=== PATIENT | female | born 1985 | race Caucasian/White ===

== ENCOUNTER 2019-04-29 11:30 | Emergency (ER) | payer OTHER, SELFPAY ==
--- NOTE | ~2019-04-29 | XR_ITS ---
EXAMINATION: XR hand RT min 3V DATE: 04/29/2019 11:58 INDICATION: Right hand injury. TECHNIQUE: 3 views of right hand were obtained. COMPARISON: None. FINDINGS: Bone alignment is normal. No fracture. Joint spaces are well maintained. IMPRESSION: 1. Normal right hand. Reviewed, dictated and finalized at location A. AULIC AND PLUMBING INSTALLER IMPRESSION: 1. Normal right hand.
--- NOTE | ~2019-04-29 | XR_ITS ---
EXAMINATION: XR hand LT min 3V DATE: 04/29/2019 11:58 INDICATION: Left hand injury. TECHNIQUE: 3 views of left hand were obtained. COMPARISON: Left hand radiographs 07/29/2018 FINDINGS: There is a transverse fracture of proximal metaphysis of fifth proximal phalanx. The distal fracture fragment demonstrates impaction, 1 mm palmar displacement, 17 degrees dorsal angulation, 1 mm medial displacement, and 42 degrees radial angulation. Joint spaces are normal. IMPRESSION: 1. Transverse fracture of metaphysis of fifth proximal phalanx. Reviewed, dictated and finalized at location A. ER DEPARTMENT MANAGER
[2019-04-29 11:37] VITALS: BP 118/60; PULSE 81; RESP 20; TEMP 36.3; O2SAT 100
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
[2019-04-29 13:02] VITALS: BP 122/78; PULSE 80; RESP 20; TEMP 36.7; O2SAT 99
== END 2019-04-29 13:03 | disposition home or self-care (01) ==
PROVIDERS: Emergency Provider Emergency Medicine; PCP Family Medicine
DX: S62.617A Displaced fracture of proximal phalanx of left little finger, initial encounter for closed fracture (principal); F17.200 Nicotine dependence, unspecified, uncomplicated; V18.4XXA Pedal cycle driver injured in noncollision transport accident in traffic accident, initial encounter; Y93.55 Activity, bike riding
CPT/HCPCS: 26725; 73130; 99285; A9270

== ENCOUNTER → 2020-05-23 11:49 | Outpatient (CLI) | payer OTHER, SELFPAY ==
--- NOTE | ~2020-05-23 | XR_ITS ---
XR forearm LT 2V 05/23/2020 12:29 INDICATION: Left arm pain PROCEDURE: 2 views left forearm COMPARISON: No prior studies for comparison. FINDINGS: Fracture, dislocation or subluxation is not identified. The soft tissues appear within norm al limits. No foreign bodies are identified. IMPRESSION: 1: NO ACUTE BONE OR JOINT ABNORMALITY IDENTIFIED. Reviewed, dictated and finalized at location B.
== END ==
PROVIDERS: PCP Family Medicine; Visit Provider Physician Assistant
DX: M79.632 Pain in left forearm (principal)
CPT/HCPCS: 73090

== ENCOUNTER → 2020-10-18 01:30 | Outpatient (CLI) | payer OTHER, SELFPAY ==
[2020-10-19 01:35] LABS: SARS-CoV-2 RNA PCR Negative
== END ==
PROVIDERS: PCP Family Medicine; Visit Provider Physician Assistant
DX: J02.9 Acute pharyngitis, unspecified (principal); R51.9 Headache, unspecified; R68.83 Chills (without fever); Z20.822 Contact with and (suspected) exposure to COVID-19
CPT/HCPCS: C9803; U0003; U0005

== ENCOUNTER → 2020-11-05 08:00 | Outpatient (CLI) | payer OTHER, SELFPAY ==
[2020-11-05 20:24] LABS: SARS-CoV-2 RNA PCR Positive
== END ==
PROVIDERS: PCP Family Medicine; Visit Provider Family Medicine
DX: U07.1 COVID-19 (principal)
CPT/HCPCS: C9803; U0003; U0005

== ENCOUNTER 2021-04-19 12:14 | Emergency (ER) | payer OTHER, SELFPAY ==
[2021-04-19] VITALS (17 sets, daily range): BP systolic 101–135; BP diastolic 66–75; PULSE 52–80; RESP 13–17; TEMP 36.8; O2SAT 97–100
[2021-04-19] MEDS: SODIUM CHLORIDE 0.9% IV 1,000 ML 999 ML IV CONT (12:53)
[2021-04-19] MEDS: diphenhydrAMINE HCl INJ 50 MG/ML VIAL 25 MG IV PUSH (12:53)
[2021-04-19] MEDS: KETOROLAC 30 MG/ML VIAL (*BKC) IV PUSH (12:54)
[2021-04-19] MEDS: METOCLOPRAMIDE HCL INJ 10 MG/2 ML VIAL IV PUSH (12:54)
--- NOTE | 2021-04-19 13:53 | ED.GENADULT ---
HPI - General Adult General Chief complaint: Headache <Fiorella Fu APRN - Last Filed: 04/19/21 18:53> Stated complaint: headache <Fiorella Fu APRN - Last Filed: 04/19/21 18:53> Time Seen by Provider: 04/19/21 12:22 <Fiorella Fu APRN - Last Filed: 04/19/21 18:53> Source: patient <Fiorella Fu APRN - Last Filed: 04/19/21 18:53> Mode of arrival: ambulatory <Fiorella Fu APRN - Last Filed: 04/19/21 18:53> Limitations: no limitations <Fiorella Fu APRN - Last Filed: 04/19/21 18:53> History of Present Illness HPI narrative: 35-year-old female with history significant for brain tumor, brain surgery, and migraines presents today with complaints of headache for 3 weeks. Headache has been worse over the last couple days. Patient states this is a typical migraine for her and there is no new symptoms. Patient currently sensitive to light, with nausea, with pain rated 10 out of a 10. Pain is mostly to the left side of the forehead. Patient states her last scan was in December. Patient denies any weakness, slurred speech, visual changes, or change in her migraines. <Fiorella Fu APRN - Last Filed: 04/19/21 18:53> Related Data Home medications: Home Medications Medication Instructions Recorded Confirmed duloxetine 60 mg capsule,delayed 60 mg PO DAILY PRN 08/29/20 08/29/20 release eletriptan 40 mg tablet 40 mg PO ONCE 08/29/20 08/29/20 eptinezumab-jjmr 100 mg/mL 100 mg IV [id number] 08/29/20 08/29/20 intravenous solution hydroxyzine HCl 25 mg tablet 25 mg PO TID PRN 08/29/20 08/29/20 olanzapine 5 mg tablet 5 mg PO DAILY 08/29/20 08/29/20 topiramate 50 mg tablet 50 mg PO BID 08/29/20 08/29/20 <Fiorella Fu APRN - Last Filed: 04/19/21 18:53> Allergies/adverse reactions: Allergies Allergy/AdvReac Type Severity Reaction Status Date / Time tramadol Allergy Unknown Hives Verified 04/19/21 12:27 <Fiorella Fu APRN - Last Filed: 04/19/21 18:53> Review of Systems Review of Systems: CONSTITUTIONAL: Denies fever, chills, or sweats. EYES: Denies visual changes, redness, or discharge. ENT: Denies rhinorrhea, congestion, sore throat, or otalgia. CARDIOVASCULAR: Denies chest pain, palpitations, or edema. RESPIRATORY: Denies cough or dyspnea. GASTROINTESTINAL: Denies abdominal pain, nausea, vomiting, or diarrhea. GENITOURINARY: Denies dysuria or hematuria. SKIN: Denies rash or itching. MUSCULOSKELETAL: Denies back pain, joint pain, or myalgia. NEUROLOGIC: Headache x 3 weeks. Denies numbness, dizziness, or weakness. PSYCHIATRIC: Denies anxiety or depression. <Fiorella Fu APRN - Last Filed: 04/19/21 18:53> [facility] Past Medical History Medical History: Medical History (Updated 04/19/21 @ 18:40 by Fiorella Fu APRN) Brain tumor Migraine <Fiorella Fu APRN - Last Filed: 04/19/21 18:53> Surgical History Surgical History: Surgical History (Updated 04/19/21 @ 18:40 by Fiorella Fu APRN) H/O brain surgery H/O foot surgery (06/08/16) <Fiorella Fu APRN - Last Filed: 04/19/21 18:53> Social History Social History: Social History Alcohol intake: current <Fiorella Fu APRN - Last Filed: 04/19/21 18:53> Exam Narrative: GENERAL: Well-appearing, well-nourished, and in no acute distress. HEAD: Normocephalic, atraumatic. EYES: PERRLA and EOMI. ENT: Nares clear, no rhinorrhea or epistaxis. Mucous membranes moist. Oropharynx without tonsillar hypertrophy exudate or other lesions. Bilateral TMs pearly espinoza nonbulging NECK: Supple. No adenopathy or masses. No carotid bruits or JVD CHEST: Clear to auscultation. No respiratory distress. No wheezes rales or rhonchi HEART: Regular rate and rhythm. No murmur heard. Normal peripheral pulses. ABDOMEN: Soft, nontender, nondistended, normal active bowel sounds. EXTREMITIES: Normal range of motion. No edema. SKIN: War
== END 2021-04-19 15:23 | disposition home or self-care (01) ==
PROVIDERS: Emergency Provider Nurse Practitioner Family; PCP Family Medicine
DX: G43.909 Migraine, unspecified, not intractable, without status migrainosus (principal)
CPT/HCPCS: 96361; 96374; 96375; 99284; J1100; J1200; J1885; J2765; J7030

== ENCOUNTER → 2021-05-22 10:41 | Outpatient (CLI) | payer OTHER, SELFPAY ==
--- NOTE | ~2021-05-22 | XR_ITS ---
XR lumbar spine 2-3V DATE: 05/22/2021 11:37 INDICATION: Right hip pain TECHNIQUE: AP, lateral, coned lateral lumbosacral views COMPARISON: None FINDINGS: Minimal anterior wedging of T12 and L1, likely developmental. Minimal degenerative spurring at L1-2 and L2-3. Severe degenerative disc disease at L5-S1. No fracture or bone destruction. No spondylolisthesis. T11-L5 pedicles are intact. The sacroiliac joints appear normal. IMPRESSION: Severe degenerative disc disease at L5-S1 Reviewed, dictated and finalized at location A.
--- NOTE | ~2021-05-22 | XR_ITS ---
XR hip RT min 2V DATE: 05/22/2021 11:37 INDICATION: Right hip pain TECHNIQUE: AP and lateral views COMPARISON: 12/18/2015 right hip FINDINGS: No fracture or dislocation, avascular necrosis or bone destruction. Right hip joint space i s well preserved. Pubic symphysis and right sacral iliac joint are intact. IUD overlies the pelvis. IMPRESSION: Negative right hip Reviewed, dictated and finalized at location A. IMPRESSION: Negative right hip
== END ==
PROVIDERS: PCP Physician Assistant; Visit Provider Physician Assistant
DX: M25.551 Pain in right hip (principal); M51.36 Other intervertebral disc degeneration, lumbar region
CPT/HCPCS: 72100; 73502

== ENCOUNTER → 2021-06-03 10:09 | Outpatient (CLI) | payer OTHER, SELFPAY ==
--- NOTE | ~2021-06-03 | MR_ITS ---
EXAMINATION: MR hip RT wo con DATE: 06/03/2021 11:06 INDICATION: Right hip pain TECHNIQUE: Magnetic resonance imaging (MRI) of the right hip was performed without intravenous contr ast. Sequences included full-field axial PD-weighted FS FSE and T1-weighted FSE, coronal of the pelvi s with PD-weighted FS FSE, T2-weighted FSE and T1-weighted FSE, small field of view of the right hip with axial PD-weighted FS FSE, sagittal PD-weighted FS FSE, coronal PD-weighted FS FSE and coronal T2 weighted FSE. Additional radial T1-weighted FGR oriented orthogonal to the acetabular rim were obt ained for evaluation of the labrum. COMPARISON: None FINDINGS: Bones/labrum/cartilage: Alignment is normal. No fracture, avascular necrosis or pathologic marrow replacing process. Labrum is normal. Articular cartilage is normal. Severe disc height loss with fibrofatty degenerative endpla te changes at L5-S1. Fluid: Symmetric physiologic amount of fluid within both hip joints. Soft tissues: Normal and symmetric muscle bulk and signal in the pelvis and visualized proximal thighs. The iliopso as, gluteal and proximal hamstring tendons are normal. T-shaped IUD in expected position within the e ndometrial canal of the anteverted uterus. Small nabothian cyst at the cervix. Limited evaluation of visceral organs of the pelvis is unremarkable. There are numerous fusiform T2 hyperintense lesions in volving the nerve roots of the bilateral lumbosacral plexus with appearance most consistent with a co mplex form neurofibroma. No pathologically enlarged pelvic/inguinal lymphadenopathy. IMPRESSION: 1. 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 2. Normal right hip. 3. IUD in expected position. Reviewed, dictated and finalized at location B. IMPRESSION: 1. 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 2. Normal right hip. 3. IUD in expected position.
--- NOTE | ~2021-06-03 | MR_ITS ---
EXAMINATION: MR lumbar spine wo con DATE: 06/03/2021 11:15 INDICATION: Right hip pain. Right-sided low back pain. TECHNIQUE: Magnetic resonance imaging (MRI) of the lumbar spine was performed without intravenous con trast. Sequences included sagittal T2-weighted FSE, sagittal T2-weighted FS FSE, sagittal T1-weighted FSE, and axial T2-weighted FSE. COMPARISON: None FINDINGS: 4-5 mm retrolisthesis L5 on S1. Alignment is otherwise normal. Likely physiologic mild anterior wedgi ng at T12 and L1. Remaining vertebral body heights are normal. Severe disc height loss at L5-S1 with fibrofatty degenerative endplate changes. Marrow signal is otherwise normal. The conus medullaris ter minates at L1-L2. There is normal signal in the caudal spinal cord. There are numerous T2 hyperintens e fusiform lesions along the visualized portion of the bilateral lumbosacral plexus. 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 Paravertebral soft tissues are otherwise normal. The following disc levels are specifically discussed: T12-L1: Disc is minimally bulging. There is mild bilateral facet joint osteoarthritis. There is no ne ural foraminal stenosis. There is no central canal stenosis. L1-L2: Disc is minimally bulging. There is mild bilateral facet joint osteoarthritis. There is no rodger ral foraminal stenosis. There is no central canal stenosis. L2-L3: Disc is mildly bulging. There is mild bilateral facet joint osteoarthritis. There is altered l eft and minimal right neural foraminal stenosis. There is minimal central canal stenosis. L3-L4: Disc is mildly bulging. There is mild to moderate bilateral facet joint osteoarthritis. There is mild bilateral neural foraminal stenosis. There is minimal central canal stenosis. L4-L5: Disc is minimally bulging. There is moderate bilateral facet joint osteoarthritis. There is mi ld bilateral neural foraminal stenosis. There is no central canal stenosis. L5-S1: Disc is bulging with annular fissure and small central disc extrusion with disc material exten ding up to 4 mm caudal to the level of the superior endplate of S1. There is mild left and moderate r ight facet joint osteoarthritis. There is mild bilateral neural foraminal stenosis. There is no centr al canal stenosis. IMPRESSION: 1. Severe disc height loss with annular fissure at L5-S1. Otherwise minimal to mild spondylosis more cephalad lumbar spine. 2. Multiple fusiform T2 hyperintense lesions along the visualized portions of the bilateral lumbosacr al plexus with appearance most suggestive of plexiform neurofibromas which can be seen in the setting of neurofibromatosis type I. Reviewed, dictated and finalized at location B. IMPRESSION: 1. Severe disc height loss with annular fissure at L5-S1. Otherwise minimal to mild spondylosis more cephalad lumbar spine. 2. Multiple fusiform T2 hyperintense lesions along the visualized portions of t he bilateral lumbosacral plexus with appearance most suggestive of plexiform ne urofibromas which can be seen in the setting of neurofibromatosis type I.
== END ==
PROVIDERS: PCP Family Medicine; Visit Provider Physician Assistant
DX: M25.551 Pain in right hip (principal); M54.9 Dorsalgia, unspecified; R29.890 Loss of height; M47.816 Spondylosis without myelopathy or radiculopathy, lumbar region; M89.9 Disorder of bone, unspecified; D36.10 Benign neoplasm of peripheral nerves and autonomic nervous system, unspecified; Z97.5 Presence of (intrauterine) contraceptive device
CPT/HCPCS: 72148; 73721

== ENCOUNTER 2022-02-09 08:28 | Outpatient (CLI) | payer OTHER, SELFPAY ==
--- NOTE | 2022-03-10 11:14 | WPDSLEEPSTUD ---
Sleep Study Date of Study: 02/09/22 Ordering Provider: MAGAN Siegel Interpreting Physician: Jeniffer Burleson MD Sleep Study Type: Polysomnogram Height: 1.73 m Weight: 90.265 kg Body Mass Index: 30.2 Neck Circumference (inches): 14 [place]: 13 Reason for Sleep Study Hypersomnolence Sleep History Tika Stewart is a 36-year-old female with insomnia and daytime sleepiness. She has a history of a left temporal meningioma s/p full resection in December 2014 followed by radiation in April 2015. Hx Gcdsajc-Fqpmb-Zzctx disease, history of seizures. migraines, history of depression, anxiety with panic disorder follows with psychiatry. She states she has had trouble sleeping since her brain surgery in 2014..? She does not awaken from sleep feeling short of breath.? She does not awaken at night with heartburn, belching or coughing.? She occasionally snores and occasionally this is loud enough that others complain.? She occasionally has trouble sleeping with a cold.? She does not gasp for breath at night.? She does not sweat excessively at night or notice her heart pounding or beating irregularly at night.? She constantly falls asleep during the day but never involuntarily and in never while driving.? She does not have loss of muscle tone with strong emotion. ?She occasionally has daytime difficulties due to her excessive sleepiness.? She does not feel paralyzed on waking or falling asleep.? She does not have vivid dreamlike scenes on waking or falling asleep.? She does not feel afraid to go to sleep.? She has insomnia.? She is tired all the time. Her legs often feel uncomfortable like she has to move them out from under the sheets but she attributes some of this to her Netkvty-Sikii-Hkcmy disease. She does have significant peripheral neuropathy which has caused her to fall and she has worn ankle braces due to bilateral foot drop. She has use 1-2 inhalations of marijuana at night to help with sleep and she uses a marijuana medical card. The edible form does not work as well. Normal bedtime is 9:00 p.m. falling asleep quickly waking up 1-2 times at night actually getting out of the bed but she will wake a total of 5-10 times. She may go to the bathroom, will toss and turn and then return to sleep.? It may take her 10-30 minutes to actually return to sleep. ?Her normal wake time is 6:00 a.m..? Weekend schedule is similar, bedtime is 9:30 p.m. to 10:00 p.m. and she wakes at 7:00 a.m.. She rarely awakens feeling refreshed.? She occasionally has morning headaches. she reports nocturia 1-2 times at night. She often takes an afternoon nap around noon or 1:00 p.m. and this may last 1-1/2 hours. She usually wakes from that feeling groggy. She can not eliminate the naps or she is too tired. Habits:? Quit tobacco 17 years ago.? Caffeine 3-4 per day.? Alcohol once a week at most.? No recreational substance. ? [facility] Past Medical History Medical History Brain tumor Migraine Surgical History Surgical History H/O brain surgery H/O foot surgery (06/08/16) Social History Social History Smoking packs per day: 0.1 Smoking cigarettes per day: 2.0 Years smoked: 3 Smoking pack-years: 0.30 Smoking status: Former smoker Tobacco type: cigarettes Smoking end date: 02/28/06 Alcohol intake: current Substance use type: does not use Medications Home Medications Medication Instructions Recorded Confirmed Type duloxetine 60 mg capsule,delayed 60 mg PO DAILY PRN 08/29/20 01/01/22 History release hydroxyzine HCl 25 mg tablet 25 mg PO TID PRN 08/29/20 01/01/22 History olanzapine 5 mg tablet 5 mg PO DAILY 08/29/20 01/01/22 History topiramate 50 mg tablet (Topamax) 50 mg PO BID 08/29/20 01/01/22 History ondansetron 4 mg disintegrating 4 mg PO Q8H PRN nausea and 11/06/20
[2022-03-10 11:47] VITALS: BMI 30.2
== END 2022-02-10 06:25 | disposition home or self-care (01) ==
PROVIDERS: PCP Family Medicine; Visit Provider Physician Assistant
DX: G47.61 Periodic limb movement disorder (principal); G47.10 Hypersomnia, unspecified
CPT/HCPCS: 95810

== ENCOUNTER → 2023-01-18 10:22 | Outpatient (CLI) | payer OTHER, SELFPAY ==
--- NOTE | ~2023-01-18 | XR_ITS ---
EXAM: XR hip RT 2V w AP pelvis DATE: 01/18/2023 10:40 HISTORY: right hip pain after dancing 3 days ago . COMPARISON: 05/22/2021. FINDINGS: IUD, in good position. Normal mineralization. No acute fracture or dislocation. Bilateral c oxa valga. Osseous fragments at the bilateral lesser trochanters may represent unfused epiphyses or o ld avulsion fractures. No lytic or blastic lesion. Joint spaces are maintained. No erosion or periost eal change. Pelvic phleboliths. IMPRESSION: No acute osseous finding in the right hip or pelvis. Reviewed, dictated and finalized at location K. R[employer] VEHICLE PATROL OFFICER
== END ==
PROVIDERS: PCP Physician Assistant; Visit Provider Physician Assistant
DX: M25.551 Pain in right hip (principal)
CPT/HCPCS: 73502

== ENCOUNTER 2023-02-09 06:40 | Outpatient (CLI) | payer OTHER, SELFPAY ==
--- NOTE | ~2023-02-09 | MR_ITS ---
MRI of the right hip Clinical history: Pain Technique: Coronal T1-weighted, T2-weighted, and proton-density fat-sat images, and axial T1-weighted and proton-density fat-sat images were acquired through the pelvis. Coronal T2-weighted images and c oronal, axial, and sagittal proton-density fat-sat images were acquired through the right hip. COMPARISON: 06/03/2021 Findings: There is no fracture, avascular necrosis, transient suppresses of either hip. Bone marrow s ignals the proximal femora and visualized pelvic bones are unremarkable. Bilateral hip joint spaces a re preserved. No chondral lesion. No joint effusion. No labral tear identified. Visualized musculature about the pelvis and right hip is unremarkable. No muscle atrophy or edema. Vi sualized tendons are intact. No bursitis or fluid collection identified. Suggestion of possible neuro fibromas at the lumbosacral plexus bilaterally is stable from prior exam. No other soft tissue mass e vident. IMPRESSION: Unremarkable right hip. Suspected plexiform neurofibromas of the lumbosacral plexus, stable from prior exam. Reviewed, dictated and finalized at location . [employer] MECH[employer]IC
== END 2023-02-09 06:41 | disposition home or self-care (01) ==
PROVIDERS: PCP Family Medicine; Visit Provider Physician Assistant
DX: M25.551 Pain in right hip (principal)
CPT/HCPCS: 73721

== ENCOUNTER 2023-11-01 09:00 | Emergency (ER) | payer OTHER, SELFPAY ==
[2023-11-01 09:48] VITALS: BP 104/73; PULSE 91; RESP 16; TEMP 36.6; O2SAT 100
--- NOTE | 2023-11-01 10:10 | ED.GENADULT ---
HPI - General Adult General Chief complaint: Extremity Injury, Lower Stated complaint: Lower Back Pain/ RT Hip pain/ RT Knee Pain Time Seen by Provider: 11/01/23 09:59 Source: patient, RN notes reviewed and old records reviewed Mode of arrival: ambulatory Limitations: no limitations History of Present Illness HPI narrative: 38-year-old female to [facility] for complaint right lower pain, right hip pain, right knee pain for 3 days. Patient reports that on Tuesday she was on her riding lawnmower traveling at a high speed and making a turn up hill when she flipped down hill off of her lawnmower, landing onto her back left side. Patient struck head during fall. Patient reports vision loss for several minutes and bilateral ringing in her ears. Patient states that her was nearby and carried her up hill to their home. Patient states they have been attempting to treat her pain at home, however it is increasing. Patient reports urinary incontinence during fall. Patient denies any other urinary incontinence, bowel incontinence, saddle anesthesia. Patient endorsing bilateral lower extremity weakness, right lower extremity pain with ambulation from hip down. Patient reports recently going through therapy for right hip pain. Patient denies other pertinent medical history, allergies, nausea, vomiting, dizziness, current visual changes, current hearing changes. Patient resting tearfully on exam table, lying on left side. Friend at bedside. Patient advised that transfer was necessary. Patient requested transport to [facility]. Related Data Home Medications Medication Instructions Recorded Confirmed eletriptan 40 mg tablet 40 mg PO Q2-4H PRN Migraine 12/14/21 11/01/23 Headache olanzapine 5 mg tablet 5 mg PO DAILY PRN Migraine Headache 04/07/22 11/01/23 Allergies Allergy/AdvReac Type Severity Reaction Status Date / Time No Known Allergies Allergy Verified 10/04/23 13:49 Review of Systems Review of Systems: All systems reviewed & are unremarkable except as noted in HPI and below Constitutional: Constitutional: Reports no additional constitutional complaints Eyes: Eyes: Reports no additional eye complaints ENT: Reports system reviewed and no additional complaints, except as documented Cardiovascular: Cardiovascular: Reports no additional cardiovascular complaints, Denies chest pain and Denies dyspnea Respiratory: Respiratory: Reports no additional respiratory complaints, Denies cough and Denies dyspnea Musculoskeletal: Musculoskeletal: Reports as per HPI, Reports abnormal gait, Reports back pain, Reports arthralgias, Reports limited range of motion, Reports muscle weakness, Reports radiating pain into limb and Reports stiffness Comments: Right lower back, right hip, right knee Neurologic: Reports as per HPI, Reports Normal hearing present, Reports abnormal gait, Denies vertigo, Denies dizziness, Denies headache(s), Reports loss of vision ( last several minutes after accident per patient), Denies memory loss, Denies convulsions, Denies seizure-like activity, Denies tremor(s) and Reports weakness Psychiatric: Psychiatric: Reports no additional psychiatric complaints PMFSH Past Medical History Medical History Brain tumor Migraine Surgical History Surgical History H/O brain surgery H/O foot surgery (06/08/16) Social History Social History Smoking packs per day: 0.1 Smoking cigarettes per day: 2.0 Years smoked: 3 Smoking pack-years: 0.30 Smoking status: Former smoker Tobacco type: cigarettes Smoking end date: 02/28/05 Alcohol intake: current Alcohol use details: rarely Substance use: current Substance use type: marijuana Other substance usage details: edibles, topical and smokes Lack of Transpor
== END 2023-11-01 10:57 | disposition short-term general hospital (02) ==
LOC: EXPGOSH 09:21
PROVIDERS: Emergency Provider Nurse Practitioner Family; PCP Family Medicine
DX: M25.551 Pain in right hip (principal); M54.50 Low back pain, unspecified; M25.561 Pain in right knee; Z87.891 Personal history of nicotine dependence; F12.90 Cannabis use, unspecified, uncomplicated
CPT/HCPCS: 99215; G0463

== ENCOUNTER 2024-01-31 10:31 | Outpatient (CLI) | payer OTHER, SELFPAY ==
--- NOTE | ~2024-01-31 | MR_ITS ---
EXAMINATION: MR knee RT wo con DATE: 01/31/2024 11:03 INDICATION: Right knee pain and internal derangement. TECHNIQUE: Magnetic resonance imaging (MRI) of the right knee was performed without intravenous contr ast. Sequences included coronal PD-weighted FSE, coronal PD-weighted FS FSE, sagittal T2-weighted FS E, sagittal PD-weighted FS FSE and axial PD weighted fat saturated FSE. COMPARISON: None. FINDINGS: Medial compartment: Medial meniscus is normal. Articular cartilage is normal. Lateral compartment: Lateral meniscus is normal. Deep chondral fissuring at the central to posterior lateral tibial platea u with tiny focus of underlying subarticular edema-like signal change. Patellofemoral compartment: Is partial thickness patellar chondral fissuring involving up to 50% of the cartilage thickness and w ithout degenerative subchondral changes. Trochlear cartilage appears normal. Ligaments and tendons: Anterior and posterior cruciate ligaments are normal. The medial collateral ligament and fibular tyler ateral ligament complex are normal. The extensor mechanism is normal. The visualized medial and later al hamstring tendons as well as the iliotibial band are normal. Fluid: Physiologic amount of fluid in the joint space. No loose osteochondral bodies identified. Osseous/other: Bone alignment is normal. No fracture or pathologic marrow replacing process. There is some fatty atr ophy of the musculature in the visualized proximal calf, moderate distal tear at the medial head of t he gastrocnemius and of the musculature of the anterior compartment. Mild to moderate fatty atrophy o f the remaining musculature at the proximal calf. IMPRESSION: 1. Mild lateral and patellofemoral compartment osteoarthritis with small region of moderate and high- grade chondral malacia the lateral tibial plateau is more extensive moderate grade chondromalacia in the patella. 2. Nonspecific mild to severe fatty atrophy of the visualized musculature of the proximal calf which is of indeterminate etiology. Reviewed, dictated and finalized at location A. R TECHNICIAN IMPRESSION: 1. Mild lateral and patellofemoral compartment osteoarthritis with small region of moderate and high-grade chondral malacia the lateral tibial plateau is more extensive moderate grade chondromalacia in the patella. 2. Nonspecific mild to severe fatty atrophy of the visualized musculature of th e proximal calf which is of indeterminate etiology.
== END 2024-01-31 10:32 | disposition home or self-care (01) ==
LOC: GOSHIMG 10:32
PROVIDERS: PCP Family Medicine; Visit Provider Family Medicine
DX: M17.11 Unilateral primary osteoarthritis, right knee (principal); M94.261 Chondromalacia, right knee; M62.561 Muscle wasting and atrophy, not elsewhere classified, right lower leg; M23.90 Unspecified internal derangement of unspecified knee; G60.0 Hereditary motor and sensory neuropathy; Q87.89 Other specified congenital malformation syndromes, not elsewhere classified
CPT/HCPCS: 73721

== ENCOUNTER 2024-02-02 10:20 | Outpatient (CLI) | payer OTHER, SELFPAY ==
[2024-02-02 12:57] LABS: Cholesterol 178 mg/dL (0-200); HDL Direct 54 mg/dL; Triglycerides 72 mg/dL (<150)
[2024-02-02 13:08] LABS: LDL Cholesterol Direct 94 mg/dL
== END 2024-02-02 10:21 | disposition home or self-care (01) ==
LOC: ANHGOSHLAB 10:21
PROVIDERS: PCP Family Medicine; Visit Provider Family Medicine
DX: Z00.00 Encounter for general adult medical examination without abnormal findings (principal)
CPT/HCPCS: 36415; 80061

== ENCOUNTER 2024-10-17 08:12 | Outpatient (CLI) | payer OTHER, BC, SELFPAY ==
--- NOTE | ~2024-10-17 | US_ITS ---
Limited Abdominal Sonogram: Real-time sonographic imaging of the right upper quadrant was performed. Clinical History: Abdominal pain Findings: The liver appears normal with no evidence of mass lesion or bile duct dilatation. Main portal vein demonstrates normal direction of flow. The gallbladder is well distended, and demonstrates 4 mm gallbladder wall polyp. The common bile duct measures 2 mm. The visualized pancreas, aorta, and IVC are unremarkable. Impression: 4 mm gallbladder wall polyp. Reviewed, dictated and finalized at location . Impression: 4 mm gallbladder wall polyp.
== END 2024-10-17 08:13 | disposition home or self-care (01) ==
LOC: GOSHIMG 08:13
PROVIDERS: PCP Family Medicine; Visit Provider Family Medicine
DX: K82.4 Cholesterolosis of gallbladder (principal)
CPT/HCPCS: 76705

== ENCOUNTER 2024-10-25 08:29 | Outpatient (CLI) | payer OTHER, BC, SELFPAY ==
--- NOTE | ~2024-10-25 | NM_ITS ---
EXAMINATION: NM_HEPATWP_NM DATE: 10/25/2024 13:46 CDT INDICATION: Right upper quadrant pain COMPARISON: Ultrasound dated 10/17/2024. TECHNIQUE: 4.9 mCi Tc-99m mebrofenin (Choletec) was administered intravenously. Scintigraphic images of the abdomen were obtained for one hour. At the 1 hour time point, [3 mcg sincalide (Kinevac) was administered by slow intravenous infusion, and imaging was continued for 30 minutes. Gallbladder ejection fraction was calculated by the technologist.] FINDINGS: There is normal clearance of radiotracer from the blood pool. There is homogeneous tracer uptake by the liver. Activity progresses to the gallbladder and bowel. Gallbladder ejection fraction is 71%% (normal 10-90%, but most patient with gallbladder dysfunction have GBEF < 35%).] IMPRESSION: 1. Normal hepatobiliary scan. Reviewed, dictated and finalized at location O.
--- OUTSIDE RECORDS SUMMARY | 2024-10-25 08:36 | XMS_ITS | Patient Health Record ---
Author Organization [facility] [employer] Address [address] [facility] [address] [place] [address] Care Team Providers Care Can Maker Name Role Phone Ayden Salgado Unavailable [phone] Allergies No Known Allergies Reason For Referral No Information Medications Medication SIG (Take, Route, Frequency, Duration) Notes Start Date End Date Status lamoTRIgine 100 MG Tablet Oral 11/23/2021 Active REYVOW 100 MG TABLET *Reorder fr [facility] for eRx and Interaction Alerts* 11/23/2021 Active OLANZapine 5 MG Tablet Oral 11/23/2021 Active Naratriptan HCl 2.5 MG Tablet Oral 11/23/2021 Active Ibuprofen 400 MG Tablet Oral 11/23/2021 Active hydrOXYzine HCl 25 MG Tablet Oral 11/23/2021 Active ELETRIPTAN HBR 40 mg Tablet Oral *Reorder from [facility] for eRx and Interaction Alerts* 11/23/2021 Active traMADol HCl 50 MG Tablet Oral 11/23/2021 Active Trintellix 10 MG Tablet Oral 11/23/2021 Active Topiramate 25 MG Tablet Oral 11/23/2021 Active Eszopiclone 3 MG Tablet Oral 11/23/2021 Active Immunizations Vaccine Route Administration Date Status Comme nts Pfizer Biontech Covid-19 Vac cine 2nd dose Unknown 05/01/2020 Administered Pfizer Biontech Covid-19 Vac cine 2nd dose Unknown 05/22/2020 Administered Social History Social History Additional Details Category Social Info Options Details Migrated Social History Migrated Social History Alcohol Intake: Occasional 08/22/2020,Tobacco Years: Former smoker 08/22/2020,Smoking Status: 4 05/20/2021 Plan Of Treatment No Information Insurance Providers Payer Name Payer Address Payer Phone Subscriber Number Group Number Insured Name Patient Relationship to Insured Coverage Start Date Coverage End Date [facility] [address] [place] [phone] [phone] [id number] MICHAEL BARAJAS Self - patient is the insured Medical (General) History Surgical History Surgery Date(Month/Year) Transfer of tibialis posterior tendon ([id number]) Tonsillectomy ([id number]) Tonsilectomy/adenoids 02/28/2001 Total resection of visible brain tumor ( [id number]) 12/30/2015 Neurosurgery 01/22/2015
--- OUTSIDE RECORDS SUMMARY | 2024-10-25 08:36 | XMS_ITS | Clinical Summary ---
Author Organization [facility] Address [address] [place] [address] Care Team Providers Care Log Skidder Name Role Phone Berna Pelayo MD Primary Care Provider + Allergies Active Allergy Reactions Criticality Noted Date Comments Unclassified Drug Other (See comments) Low 05/07/19 20 NEUROTOXIC DRUG LIST-CAUSES CHARCOT MARIANGEL TOOTH Medications ibuprofen (ADVIL,MOTRIN) 400 mg tablet Take by mouth every 6 (six) hours as needed for pain Active 0.9 % sodium chloride ([facility] sodium chloride 0.9%) injectionIndicat ions:Maintain Patency of Indwelling Vascular Catheter Infuse 10 mL into a venous catheter as needed for line care flush piv with iv start and before and after iv med q 3 months with vyepti and prn patency issues 1 Active topiramate (TOPAMAX) 25 mg tabletIndication s:CMT (Wazputg-Vprjj-S ooth disease) TAKE 2 TABLETS BY MOUTH TWO TIMES A DAY 360 tablet 3 2 Active busPIRone (BUSPAR) 5 mg tabletIndication s:Generalized Anxiety Disorder Take 1 tablet (5 mg total) by mouth 2 (two) times a day Active OLANZapine (ZyPREXA) 5 mg tablet Take 1 tablet (5 mg total) by mouth nightly 5 tablet 3 Active amitriptyline (ELAVIL) 25 mg tabletIndication s:Chronic migraine without aura without status migrainosus, not intractable Take one tablet po qhs for one week, then two tablets po qhs 60 tablet 3 4 Active meloxicam (MOBIC) 15 mg tablet Take 1 tablet (15 mg total) by mouth daily 90 tablet 4 02/15/20 25 Active Additional Information Patient not taking.Reported on 05/31/2024 eletriptan (RELPAX) 40 mg tablet Take 1 tablet po prn for headache. May repeat once in 2 hours if unresolved. Do not exceed 80 mg in 24 hours. 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 01/29/2018 Abnormal weight loss 01/29/2018 Lesion of sciatic nerve of both lower extremitie s 01/04/2018 Epigastric pain 12/20/2017 Overview (01/24/2018): Added automatically from request for surgery [id number] Generalized anxiety disorder 11/09/2017 Chronic migraine without aur a without status migrainosus, not intractable 08/16/2017 Headache 06/10/2015 Overview (06/03/2016): Headache Seizure 06/10/2015 Overview (06/03/2016): Seizure 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 Resolved Problems Problem Noted Date Diagnosed Date Resolved Date Ulcerative colitis with complication 12/20/2017 01/29/2018 Overview (12/20/2017): Added automatically from request for surgery [id number] 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 [address] [place] [address] [address] [place] [address] Cal Roberts MD Chronic migraine without aura without status migrainosus, not intractable 08/30/2024 9:00 AM CDT Infusion [address] [place] [address] Chronic migraine without aura without status migrainosus, not intractable (Primary Dx) from Last 3 Months Surgical History Surgery Date Site/Laterality Comments OTHER SURGICAL HISTORY Brain tumor removal TONSILLECTOMY 02/28/2001 - 02/27/2002 ANTERIOR POSTERIOR TIBIALIS TRANSFER 02/28/1998 - 02/27/1999 Bilateral TOE SURGERY 02/29/2016 - 02/27/2017 Right BRAIN SURGERY 2015 SECTION 2012 Medical History Medical History Date Comments Hx Other Medical Charcot Mariangel T ooth Migraines Seizure (HCC) 12/2014 x1 Nausea Diarrhea GERD (gastroesophageal reflux disease) Anxiety Neuromuscular disorder Peripheral neuropathy Brain tumor (benign) Chest pain Depression Disc disorder of lumbar region Osteoarthritis Family History Medical History Relation Name Comments Alcohol abuse Father Maximo Wright Heart disease Father Maximo Wright Stroke Maternal Grandmother Cervical cancer Mother Cancer, cerv ical; Souagjk-Iltyg-Twnlf disease Mother Relation Name Status Comments Father Maximo Wright Maternal Grandmother Mother Paternal Grandfather Paternal Grandmother Social History Tobacco Use Types Packs/Day Years Used Date Smoking Tobacco: Former Cigarettes Q uit: 02/28/2005 Smokeless Tobacco: Never Tobacco Cessation:Counseling Given: Not Answered Alcohol Use Standard Drinks/Week Comments Yes 0 (1 standard drink = 0.6 oz pur e alcohol) 1 drink/month AUDIT-C Answer Date Recorded Q1: How often do you have a drink containing alc ohol? Monthly or less 10/15/2021 Q2: How many drinks containi ng alcohol do you have on a typical day when you are drinking? 1 or 2 10/15/2021 Q3: How often do you have si x or more drinks on one occasion? Never 10/15/2021 Hunger Vital Sign Answer Date Recorded Within the past 12 months, y ou worried that your food would run out before you got the money to buy more. Never true 07/20/19 24 Within the past 12 months, t he food you bought just didn't last and you didn't have money to get more. Never true 07/20/2023 Personal Safety Answer Date Recorded Have you ever been in or are you currently in a harmful physical or emotional relationship or is someone making you feel afraid or unsafe? 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 Gender Identity Female 05/23/2019 4:31 PM CDT Sexual Orientation Not on file Obstetrics History Last Filed Vital Signs Vital Sign Reading Time Taken Comments Blood Pressure 105/62 08/30/2024 9:19 AM CDT Pulse 59 08/30/2024 9:19 AM CDT Temperature 36.5 C (97.7 F) 08/30/2024 9:19 AM CDT Respiratory Rate 20 08/30/2024 9:19 AM CDT Oxygen Saturation 99% 08/30/2024 9:19 AM CDT Inhaled Oxygen Concentration - - Weight 83 kg (183 lb) 05/24/2024 8:30 AM CDT Height 175.3 cm (5' 9) 05/24/2024 8:30 AM CDT Body Mass Index 27.02 05/24/2024 8:30 AM CDT Plan of Treatment Health Maintenance Due Date Last Done Comments Cervical Cancer Screening 1985 Depression Screening 1985 DTaP/Tdap/Td Vaccine (1 - Tdap) 1996 Varicella Vaccines (1 of 2 - 13+ 2-dose series) 1998 Hepatitis B Screening 06/25/2003 Regular Well Visit/Exam 18-64 06/25/2003 HPV Vaccines (1 - 3-dose SCD M series) 2012 Covid-19 Vaccine (3 - Pfizer risk series) 06/19/2020 05/22/2020, 05/01/2020 Influenza Vaccine (#1) 2024 Hepatitis C Screening Completed 06/08/2016 Pneumococcal vaccine <65 Aged Out No longer eligible based on patient's age to complete this topic Goals Goal Patient Goal Type Associated Problems Recent Progress Patient-Stated? Author CCM Chronic Pain Care Plan Chronic Care Management No Garland Stone, RN Note: Problem: Chronic Pain Goals: 1. Minimize further functional decline 2. Maximize quality of life 3. Control pain Strategies: - Activity/exercise program recommendation - Conservative stepwise pain medicine strategy with multi-disciplinary approach - Recommend healthy lifestyle strategies and compensatory methods as needed Reduce the likelihood of falling Lifestyle No Garland Stone, RN Note: Below are four things you can do to prevent falls: Begin an exercise program to improve your leg strength & balance Ask your doctor or pharmacist to review your medicines Get annual eye check-ups & update your eyeglasses Make your home safer by: Removing clutter & tripping hazards Putting railings on all stairs & adding grab bars in the bathroom Having good lighting, especially on stairs Contact your local community or [facility] for information on exercise, fall prevention programs, or options for improving home safety. Medical Devices Implanted Type Area Glue Mixer Device Identifier Shelf Expiration Date Model / Serial / Lot Cranial Plate Head Mirena Iud-02/05/2013 Implanted:2012 (Quantity not on file) Vagina Procedures Procedure Name Priority Date/Time Associated Diagnosis Comments HEPATITIS C ANTIBODY STAT 06/08/2016 3:59 PM CDT from Last 3 Months or Most Recently Relevant to Health Maintenance Results * Hepatitis C antibody (06/08/2016 3:59 PM CDT) Hep C Ab Nonreactive Nonreactive [facility] Comment: Interpretive Data Positive results should be confirmed by a molecular method. If positive, a second separately collected sample should be submitted for Hepatitis C Virus (HCV) RNA Detection and Quantitation by Real-Time Reverse Curtain Stitcher-PCR (RT-PCR). Current interpretive data was last revised on 2016. Blood specimen (specimen) 06/08/2016 3:59 PM CDT 06/08/2016 5:02 PM CDT us Notinfile Unknown LAB MICROBIOLOGY - GENERAL ORD ERABLES Edited Result - Final [facility] Department [place] [address] from Last 3 Months or Most Recently Relevant to Health Maintenance Insurance [facility] MEDICARE ANTHEM ACCESS CHOICE Advance Directives For more information, please contact: [phone] * Full Code (Latest Code Status on File) Date Activated Date Inactivated Comments 02/03/2018 8:01 AM 02/03/2018 12:10 PM Care Teams Log Skidder Relationship Specialty Start Date End Date Berna Pelayo MD PCP - General Family Medicine 11/16/22
--- OUTSIDE RECORDS SUMMARY | 2024-10-25 08:36 | XMS_ITS | Clinical Summary ---
Author Organization [facility] Address [address] [place] [address] Care Team Providers Care Chief Radiologic Technologist Name Role Phone Ayah Betancourt MD Primary Care Provider [phone] Source Comments [facility],non-owned Affiliates and Associated Physician Practices is amultiple site organization consisting of ambulatory clinics and hospital sitesin [place], [place], [place] and [place]. This disclosure is being madepursuant to the Care Everywhere program and may not contain all information available regarding this patient. Last updated 17.[facility] Allergies No known active allergies Medications * Be aware that medications may not be up to date on this document. Alwaysverify current medications with the patient. ALPRAZolam (XANAX PO) Take by mouth as needed Active benzonatate (TESSALON) 200 MG capsule Take 1 capsule by mouth 3 times daily as needed for Cough 30 capsule 9 Active Eletriptan Hydrobromide 20 MG Take by mouth daily as needed - may repeat one time No more than two doses may be taken in 24 hours. Active Social History Tobacco Use Types Packs/Day Years Used Date Smoking Tobacco: Former Cigarettes Q uit: 2006 Smokeless Tobacco: Never Comments No Sex and Gender Information Value Date Recorded Sex Assigned at Not on file Legal Sex Female 6:31 AM ASSESSMENT NURSE PRACTITIONER Gender Identity Not on file Sexual Orientation Not on file Last Filed Vital Signs Vital Sign Reading Time Taken Comments Blood Pressure 110/72 02/14/2019 9:56 AM ASSESSMENT NURSE PRACTITIONER Pulse 92 02/14/2019 9:56 AM ASSESSMENT NURSE PRACTITIONER Temperature 37 C (98.6 F) 02/14/2019 9:56 AM ASSESSMENT NURSE PRACTITIONER Respiratory Rate 16 02/14/2019 9:56 AM ASSESSMENT NURSE PRACTITIONER Oxygen Saturation 98% 02/14/2019 9:56 AM ASSESSMENT NURSE PRACTITIONER Inhaled Oxygen Concentration - - Weight 83.9 kg (185 lb) 02/14/2019 9:56 AM ASSESSMENT NURSE PRACTITIONER Height 177.8 cm (5' 10) 02/14/2019 9:56 AM ASSESSMENT NURSE PRACTITIONER Body Mass Index 26.54 02/14/2019 9:56 AM ASSESSMENT NURSE PRACTITIONER Plan of Treatment Health Maintenance Due Date Last Done Comments HIV SCREENING 2000 HEPATITIS C SCREENING 06/20/2003 DTAP/TDAP/TD VACCINES (1 - Tdap) 2004 HEPATITIS B VACCINE (1 of 3 - 19+ 3-dose series) 2004 PAP SMEAR 2006 HPV VACCINE (1 - 3-dose SCDM series) 2012 COVID-19 VACCINE (1 - 2023-2 5 season) 2023 DEPRESSION SCREENING 02/29/2024 INFLUENZA VACCINE (#1) 2024 ZOSTER VACCINE (1 of 2) 06/25/2035 HIB VACCINE Aged Out No longer eligi ble based on patient's age to complete this topic MENINGOCOCCAL (Group B) VACC INE SHARED DECISION-MAKING Aged Out No longer eligibl e based on patient's age to complete this topic MENINGOCOCCAL GROUPS A/C/Y/W VACCINE Aged Out No longer eligible b ased on patient's age to complete this topic PNEUMOCOCCAL VACCINE Aged Out No long er eligible based on patient's age to complete this topic Insurance [employer] Care Teams Chief Radiologic Technologist Relationship Specialty Start Date End Date Ayah Betancourt MD [address] [address] PCP - General 09/27/17
== END 2024-10-25 08:30 | disposition home or self-care (01) ==
PROVIDERS: PCP Family Medicine; Visit Provider Family Medicine
DX: R10.11 Right upper quadrant pain (principal)
CPT/HCPCS: 78227; A9537; J2805